=== PATIENT | female | born 1980 | race African-American/Black ===

== ENCOUNTER 2016-11-22 12:22 | Emergency (ER) | payer MEDICARE, MEDICAID ==
[~2016-11-22] VITALS: Ht 167.6 cm; Wt 91.0 kg
[~2016-11-22 12:22] MED LIST: AMLODIPINE5 MG PO; ASPIRIN325 MG PO; CARVEDILOL25 MG PO; CLONIDINE0.2 MG OR; CLONIDINE0.2 MG PO; DARVOCET-N 100100 MG OR; DILANTIN100 MG PO; ENALAPRIL10 MG OR; GLIPIZIDE10 MG OR; HYDRALAZINE25 MG PO; HYDROCHLOROT25 MG PO; KEPPRA1000 MG PO; LIPITOR20 MG PO; LISINOPRIL20 MG PO; LOMOTIL2.5 MG OR; METFORMIN500 M1 OR; METFORMIN500 MG PO; METOPROL TAR100 MG PO; NIFEDIPINE60 MG PO; PHENYTOIN EX100 M1 PO; TRAMADOL HCL50 MG PO; VASOTEC5 MG OR
== END 2016-11-22 12:33 | disposition expired ==
LOC: EDBD 12:22 → ED 12:22
PROC: 5A12012 Performance of Cardiac Output, Single, Manual (ICD-10-PCS; principal; 2016-11-22)
DX: I46.9 Cardiac arrest, cause unspecified (principal)